=== PATIENT | male | born 1960 | race Caucasian/White ===

== ENCOUNTER 2022-02-06 07:52 | Day surgery (SDC) | payer OTHER ==
[2022-02-06] MEDS ORDERED: CEFAZOLIN 2G/50ML 0.9% NS 2 GM/50 ML BAG IV ONE (07:56)
[2022-02-06] MEDS ORDERED: LACTATED RINGERS 1,000 ML IV ONE ×2 (07:59→11:03)
[2022-02-06] MEDS ORDERED: BUPIVACAINE 0.5% PF 30 ML VIAL ONE (08:36)
[2022-02-06] MEDS ORDERED: LIDOCAINE MPF 2%-EPI 1:200000 20 ML VIAL ONE (08:36)
--- NOTE | 2022-02-06 09:34 | ANESTHESIA ---
Pre-Anesthesia VS, & Labs - Diagnosis left axilla mass - Procedure excision of left axilla mass Vital Signs: Temp Pulse Resp BP Pulse Ox O2 Flow Rate 36.3 C L 65 16 152/93 H 99 0 02/06/22 08:16 02/06/22 08:16 02/06/22 08:16 02/06/22 08:16 02/06/22 08:16 02/06/22 08:16 Height: 5 ft 8 in Weight (kg): 117 kg Body Mass Index: 39.2 BMI Classification: Obese - NPO >8 hours Home Medications and Allergies Home Medications: Ambulatory Orders Atorvastatin Calcium 40 mg PO DAILY 01/30/22 Telmisartan 80 mg PO DAILY 01/30/22 Atorvastatin Calcium 40 mg PO DAILY 01/30/22 Telmisartan 80 mg PO DAILY 01/30/22 Allergies/Adverse Reactions: Allergies Allergy/AdvReac Type Severity Reaction Status Date / Time No Known Drug Allergies Allergy Verified 01/30/22 12:11 Anes History & Medical History - Anesthetic History Anesthesia Complications: reports: No previous complications - Medical History Cardiovascular: reports: Hypertension, High cholesterol Pulmonary: reports: None Gastrointestinal: reports: GERD (occassional, uses tums) Urinary: reports: None Neuro: reports: None Musculoskeletal: reports: None Endocrine/Autoimmune: reports: None Blood Disorders: reports: None Skin: reports: None Smoking Status: Former smoker Psychosocial: reports: No issues indicated History of Cancer?: No - Surgical History General: reports: Colonoscopy Eyes Ears Nose Throat (EENT): reports: Tonsil/Adenoidectomy Exam General: Alert, Oriented x3, Cooperative, No acute distress Dental: WNL Mouth Openin Fingerbreadth Neck Mobility: Normal Mallampati classification: IV Thyromental Distance: 4-6 cm Mental/Cognitive Status: Alert/Oriented X3, Normal for patient Plan Anesthesia Type: General Consent for Procedure(s) Verified and Reviewed: Yes Code Status: Attempt Resuscitation ASA classification: 2-Mild systemic disease Is this case an emergency?: No
[2022-02-06] MEDS ORDERED: MIDAZOLAM 2 MG/2 ML VIAL ONE (09:40)
[2022-02-06] MEDS ORDERED: PROPOFOL 200 MG/20 ML VIAL IVP ONE (09:40)
[2022-02-06] MEDS ORDERED: fentaNYL 100 MCG/2 ML VIAL ONE (09:41)
[2022-02-06] MEDS ORDERED: BUPIVACAINE 0.25% PF 10 ML VIAL ONE (09:41)
[2022-02-06] MEDS ORDERED: DEXAMETHASONE 4 MG/ML VIAL ONE (10:16)
[2022-02-06] MEDS ORDERED: ONDANSETRON 4 MG/2 ML VIAL ONE (10:16)
[2022-02-06] MEDS ORDERED: ePHEDrine 50 MG/ML VIAL IVP ONE (10:26)
[2022-02-06] MEDS ORDERED: BUPIVACAINE 0.25% PF 10 ML VIAL SUBQ ONE (10:33)
[2022-02-06] MEDS ORDERED: MORPHINE 2 MG/ML CARPUJECT IVP PRN (11:04)
[2022-02-06] MEDS ORDERED: NALOXONE 0.4 MG/ML VIAL IVP PRN (11:04)
[2022-02-06] MEDS ORDERED: ONDANSETRON 4 MG/2 ML VIAL IVP PRN (11:04)
[2022-02-06] MEDS ORDERED: ATROPINE ABBOJECT 1 MG/10 ML SYRINGE IVP PRN (11:04)
[2022-02-06] MEDS ORDERED: HYDROmorphone 0.5 MG/0.5 ML SYRINGE IVP PRN (11:04)
[2022-02-06] MEDS ORDERED: HYDROcod/ACETAM 5/325 MG TABLET PO PRN (11:06)
[2022-02-06] MEDS: fentaNYL 100 MCG/2 ML VIAL IVP PRN ×2 (11:12→11:19)
--- NOTE | 2022-02-06 11:29 | OPERATIVE REPORT ---
Operative Report - General Procedure Date: 02/06/22 Planned Procedure: excision left axillary mass Pre-Op Diagnosis: left axillary mass Procedure Performed: excision left axillary mass Post Op Diagnosis: irregular cystic 3 to 4 cm mass - Procedure Note Primary Surgeon: reta morales Anesthesia Technique: General LMA, Local Pathology: sent Estimated Blood Loss (mL): 0 Drain/Tube Type: Other (none) Indications: painful growing irregular mass Findings: as above Complications: none - Other Other Information/Narrative: The patient was properly identified brought to the operating room and placed in supine position. Laryngeal mask anesthesia was induced. Left arm was carefully padded upwards and outwards. He was prepped and draped in a sterile fashion and given preoperative antibiotics. Local anesthetic was given throughout the procedure. An elliptical incision was made in the direction of Ani's lines directly over the palpable mass. The mass was subdermal and subcutaneous. Incision length measured approximately 5 cm. The mass was removed in its entirety with gentle retraction and cautery. Hemostasis was assured. Intermediate repair was then performed. Deep subcutaneous tissue was closed with interrupted 2-0 Vicryl suture. Buried interrupted subdermal 3-0 Vicryl sutures were then placed skin was closed with a running 4-0 Monocryl subcuticular suture. Dressing was applied. Tolerated the procedure well was awakened and brought to recovery in good condition.
[2022-02-06] MEDS ORDERED: LACTATED RINGERS 1,000 ML IV SCH (12:00)
[2022-02-06 12:09] VITALS: BP 142/89
--- NOTE | 2022-02-06 16:07 | ANESTHESIA POST OP EVALUATION ---
Anesthesia Post Eval - Post Anesthesia Eval Vitals: Last Vital Signs Temp 36.0 C L 02/06/22 11:44 Pulse 63 02/06/22 12:07 Resp 18 02/06/22 12:07 BP 142/89 H 02/06/22 12:07 Pulse Ox 97 02/06/22 12:07 O2 Flow Rate 0 02/06/22 08:16 CV Function Including HR & BP: Stable Pain Control: Satisfactory Nausea & Vomiting: Negative Mental Status: Baseline Respiratory Status: Airway Patent Hydration Status: Satisfactory Anesthesia Complications: None
== END 2022-02-06 07:53 | disposition home or self-care (01) ==
LOC: SDS 07:52
PROVIDERS: ATTEND Surgery
PROC: 0JB60ZZ Excision of Chest Subcutaneous Tissue and Fascia, Open Approach (ICD-10-PCS; principal; 2022-02-06 10:30)
DX: C79.89 Secondary malignant neoplasm of other specified sites (principal); E66.9 Obesity, unspecified; Z68.39 Body mass index [BMI] 39.0-39.9, adult; Z87.891 Personal history of nicotine dependence
CPT/HCPCS: 11604; 12032; J0690; J7120